=== PATIENT | male | born 1950 | race Caucasian/White ===

== ENCOUNTER 2023-11-28 15:42 | Outpatient (CLI) | payer MEDICARE, OTHER | END 2023-11-28 15:43 | disposition home or self-care (01) | LOC: CSHRAD 15:42 | PROVIDERS: ATTEND Orthopaedic Surgery | DX: M23.307 Other meniscus derangements, unspecified meniscus, left knee (principal); S83.207A Unspecified tear of unspecified meniscus, current injury, left knee, initial encounter; M23.92 Unspecified internal derangement of left knee; M25.462 Effusion, left knee ==

== ENCOUNTER 2025-02-28 07:12 | Outpatient (CLI) | payer OTHER | END 2025-02-28 07:13 | disposition home or self-care (01) | LOC: CSHCT 07:12 | PROVIDERS: ATTEND Internal Medicine Cardiovascular Disease | DX: Z13.6 Encounter for screening for cardiovascular disorders (principal); I25.10 Atherosclerotic heart disease of native coronary artery without angina pectoris | CPT/HCPCS: 75571 ==